=== PATIENT | male | born 1945 | race Caucasian/White ===

== ENCOUNTER 2016-10-13 17:36 | Inpatient (IN) | payer OTHER ==
[~2016-10-13] VITALS: Ht 185.4 cm; Wt 59.4 kg
[2016-10-13] MEDS ORDERED: IV NS 0.9% 1,000 ML BAG IV ONE ×2 (18:30→20:30)
[2016-10-13 18:33] LABS: BASOPHILS # (AUTO) 0.5 /CMM (0.0-0.2); BASOPHILS % (AUTO) 4.5 % (0.0-2.0); DIFF TOTAL % 100 %; EOSINOPHILS # (AUTO) 0.1 /CMM (0.0-0.7); EOSINOPHILS % (AUTO) 0.6 % (0.0-6.0); HEMATOCRIT 53 % (39-51); HEMOGLOBIN 17.3 g/dL (13.5-17.5); LYMPHOCYTES # (AUTO) 1.3 /CMM (0.8-4.8); LYMPHOCYTES % (AUTO) 12.8 % (20.0-44.0); MEAN CORPUSCULAR HEMOGLOBIN 30 PG (26.0-33.0); MEAN CORPUSCULAR HGB CONC 33 g/dl (31.0-36.0); MEAN CORPUSCULAR VOLUME 91 fL (80-96); MONOCYTES # (AUTO) 0.6 /CMM (0.1-1.30); MONOCYTES % (AUTO) 5.6 % (2.0-12.0); NEUTROPHILS % (AUTO) 76.5 % (43.0-81.0); PLATELET COUNT (AUTO) 265 /CMM (150-450); RED BLOOD CELL COUNT(AUTO) 5.82 MIL/uL (4.5-6.0); WHITE BLOOD COUNT (AUTO) 10.5 K/uL (4.3-11.0)
[2016-10-13] MEDS ORDERED: IV NS 0.9% 1,000 ML ONE ×2 (18:35→20:28)
[2016-10-13] MEDS ORDERED: IV SET PRIMARY 1 EA INFUS.SET MC ONE ×2 (18:35→20:28)
[2016-10-13 18:46] LABS: ANION GAP 16 (5-14); CALCIUM, SERUM 8.9 mg/dL (8.5-10.1); CARBON DIOXIDE 27 mmol/L (21-32); CHLORIDE 100 mmol/L (98-107); CREATININE 1.2 mg/dL (0.6-1.3); GLUCOSE 121 mg/dL (74-106); POTASSIUM 4.3 mmol/L (3.5-5.1); SODIUM SERUM 139 mmol/L (136-145); UREA NITROGEN, BLOOD 31 mg/dL (7-18)
[2016-10-13 18:50] LABS: PROTHROMBIN TIME 10.5 SECS (9.5-12.7)
[2016-10-13 18:51] LABS: ALANINE AMINOTRANSFERASE 22 U/L (12-78); ALBUMIN 3.5 g/dL (3.4-5.0); ASPARTATE AMINOTRANSFERASE 60 U/L (15-37); BILIRUBIN,DIRECT 0.1 mg/dL (0.0-0.2); BILIRUBIN,TOTAL 0.4 mg/dL (0.2-1.0); INDIRECT BILIRUBIN 0.3 mg/dL (0.0-1.1); TOTAL PROTEIN, SERUM 7.3 g/dL (6.4-8.2)
[2016-10-13 18:52] LABS: ACETAMINOPHEN 0 ug/ml (10-30); SALICYLATE 2.4 mg/dL (2.8-20.0)
[2016-10-13 18:53] LABS: TROPONIN I 0.037 ng/mL (0.00-0.056)
[2016-10-13 19:22] LABS: THYROID STIMULATING HORMONE 1.029 uIU/mL (0.358-3.74)
[2016-10-13] MEDS ORDERED: ATOR10TA PO (20:21)
[2016-10-13 21:15] VITALS: BP 126/77
[2016-10-13 21:45] VITALS: BP 126/77
[2016-10-13] MEDS ORDERED: MAG HYDROX/AL HYDROX/SIMETH 30 ML UDC PO PRN (22:00)
[2016-10-13] MEDS ORDERED: ACETAMINOPHEN 325 MG TABLET PO PRN (22:00)
[2016-10-13] MEDS ORDERED: HYDROCODONE/APAP 5/325MG 1 EACH TABLET PO PRN (22:00)
[2016-10-13] MEDS ORDERED: ONDANSETRON HCL/PF 4 MG/2 ML VIAL IVP PRN (22:00)
[2016-10-13] MEDS ORDERED: Z GUARD REMEDY 2 OZ OINT TP PRN (22:00)
[2016-10-13] MEDS ORDERED: MAGNESIUM HYDROXIDE 30 ML UDC PO PRN (22:00)
[2016-10-14] VITALS (8 sets, daily range): BP systolic 94–135; BP diastolic 61–88
[2016-10-14] MEDS ORDERED: IV SET PRIMARY PUMP SET 1 EA INFUS.SET MC ONE (00:49)
[2016-10-14] MEDS ORDERED: IV NS 0.9% 1,000 ML ONE (00:49)
[2016-10-14] MEDS: IV NS 0.9% 1,000 ML IV PRN (01:01)
[2016-10-14 07:35] LABS: BASOPHILS % (AUTO) 0.3 % (0.0-2.0); DIFF TOTAL % 100 %; HEMATOCRIT 45 % (39-51); HEMOGLOBIN 14.9 g/dL (13.5-17.5); LYMPHOCYTES # (AUTO) 1.7 /CMM (0.8-4.8); LYMPHOCYTES % (AUTO) 15.1 % (20.0-44.0); MEAN CORPUSCULAR HEMOGLOBIN 31 PG (26.0-33.0); MEAN CORPUSCULAR HGB CONC 33 g/dl (31.0-36.0); MEAN CORPUSCULAR VOLUME 92 fL (80-96); MONOCYTES # (AUTO) 0.7 /CMM (0.1-1.30); NEUTROPHILS # (AUTO) 8.7 /CMM (1.8-8.9); NEUTROPHILS % (AUTO) 78.6 % (43.0-81.0); PLATELET COUNT (AUTO) 235 /CMM (150-450); RED BLOOD CELL COUNT(AUTO) 4.87 MIL/uL (4.5-6.0); WHITE BLOOD COUNT (AUTO) 11.1 K/uL (4.3-11.0)
[2016-10-14] MEDS ORDERED: ALBUTEROL FS 2.5 MG/0.5 ML VIAL.NEB NEB SCH (07:35)
[2016-10-14 07:44] LABS: CALCIUM, SERUM 8.2 mg/dL (8.5-10.1); CREATININE 0.8 mg/dL (0.6-1.3); PHOSPHORUS 2.6 mg/dL (2.5-4.9); POTASSIUM 3.9 mmol/L (3.5-5.1)
[2016-10-14 08:52] LABS: URIC ACID 4.7 mg/dL (2.6-7.2)
[2016-10-14] MEDS: PANTOPRAZOLE 40 MG TABLET.DR PO SCH (09:43)
[2016-10-14] MEDS: ENOXAPARIN SODIUM 40 MG/0.4 ML DISP.SYRIN SQ SCH (09:43)
[2016-10-14] MEDS: ALBUTEROL FS 2.5 MG/3 ML VIAL.NEB NEB SCH ×4 (11:31→20:21)
[2016-10-15] MEDS ORDERED: IV NS 0.9% 1,000 ML ONE (06:16)
[2016-10-15] MEDS: IV NS 0.9% 1,000 ML IV PRN (06:51)
[2016-10-15] MEDS: PANTOPRAZOLE 40 MG TABLET.DR PO SCH (07:30)
[2016-10-15 08:00] VITALS: BP 111/64
[2016-10-15] MEDS: ALBUTEROL FS 2.5 MG/3 ML VIAL.NEB NEB SCH ×3 (08:03→15:37)
[2016-10-15] MEDS: ENOXAPARIN SODIUM 40 MG/0.4 ML DISP.SYRIN SQ SCH (09:29)
[2016-10-15] MEDS ORDERED: PANT40TA2 PO (14:18)
[2016-10-15] MEDS ORDERED: ACET325T53 PO (14:18)
[2016-10-15 15:53] VITALS: BP 123/77
== END 2016-10-15 16:30 | DRG 641 ==
LOC: ER 17:38 → TELE 20:18 → MED 10-14 11:19
DX: E86.0 Dehydration (principal); G91.2 (Idiopathic) normal pressure hydrocephalus; H54.8 Legal blindness, as defined in USA; Z86.73 Personal history of transient ischemic attack (TIA), and cerebral infarction without residual deficits; Z86.61 Personal history of infections of the central nervous system; J44.9 Chronic obstructive pulmonary disease, unspecified; F17.200 Nicotine dependence, unspecified, uncomplicated; F17.210 Nicotine dependence, cigarettes, uncomplicated; R73.9 Hyperglycemia, unspecified; E78.5 Hyperlipidemia, unspecified
CPT/HCPCS: 36415; 70450-TC; 71010-TC; 80048-TC; 80061-TC; 80076-TC; 80305; 81000-TC; 82140-TC; 83735-TC; 84100-TC; 84443-TC; 84484-TC; 84550-TC; 85025-TC; 85730-TC; 87070-TC; 87081-TC; 87086-TC; 94799-TC; 97001-TC; 97530-TC; A4606; G0480; G6039-TC; J1650; J7030; Z7610

== ENCOUNTER 2018-03-15 20:35 | Emergency (ER) | payer OTHER ==
[~2018-03-15] VITALS: Ht 157.5 cm; Wt 59.0 kg
[~2018-03-15 20:35] MED LIST: ACET325T53 PO; ATOR10TA PO; PANT40TA2 PO
--- NOTE | 2018-03-15 20:55 | NUR ---
bib ra from home C/C GENERALIZED WEAKNESS WHILE WALKING TO THE KITCHEN. PER PT, I SLID DOWN TO THE FLOOR. PT STATES "I HAVE HAD PROBLEMS WITH MY WALKING AND STABILITY SINCE 1950'S, BUT ITS WORSE TODAY". PT IS AAOX3. PT DENIES N/V, DIZZINESS, BLURRED VISION, PAIN. PT ABLE TO MOVE ALL EXTREMITIES EVENLY WITH GOOD SENSATIONS. NO S/S OF ACUTE DISTRESS NOTED. RESP EVEN AND UNLABORED. PT PLACED ON RAINBOW TROUT [employer]NAGER AND POX. PT SAFETY AND COMFORT MEASURES IN PLACE. AWAITING MD FOR CARLOS
--- NOTE | 2018-03-15 21:19 | NUR ---
URINAL AND CUP OF WATER PROVIDED TO PT. PT UNABLE TO GIVE URINE SAMPLE AT THIS TIME, MADE AWARE.
--- NOTE | 2018-03-15 21:20 | NUR ---
PHLEBOTOMY BEDSIDE FOR BLOOD DRAW.
[2018-03-15 21:28] LABS: BASOPHILS # (AUTO) 0.3 /CMM (0.0-0.2); BASOPHILS % (AUTO) 2.5 % (0.0-2.0); EOSINOPHILS % (AUTO) 0.2 % (0.0-6.0); HEMATOCRIT 45 % (39-51); HEMOGLOBIN 14.8 g/dL (13.5-17.5); LYMPHOCYTES # (AUTO) 1.3 /CMM (0.8-4.8); LYMPHOCYTES % (AUTO) 10.7 % (20.0-44.0); MEAN CORPUSCULAR HEMOGLOBIN 30 PG (26.0-33.0); MEAN CORPUSCULAR HGB CONC 33 g/dl (31.0-36.0); MEAN CORPUSCULAR VOLUME 91 fL (80-96); MONOCYTES # (AUTO) 0.9 /CMM (0.1-1.30); MONOCYTES % (AUTO) 7.4 % (2.0-12.0); NEUTROPHILS # (AUTO) 9.4 /CMM (1.8-8.9); NEUTROPHILS % (AUTO) 79.2 % (43.0-81.0); PLATELET COUNT (AUTO) 316 /CMM (150-450); RDW COEFFICIENT OF VARIATION 13.9 (11.5-15.0); RED BLOOD CELL COUNT(AUTO) 4.92 MIL/uL (4.5-6.0); WHITE BLOOD COUNT (AUTO) 11.9 K/uL (4.3-11.0)
[2018-03-15 21:51] LABS: CARBON DIOXIDE 29 mmol/L (21-32); CHLORIDE 106 mmol/L (98-107); CREATININE 1.1 mg/dL (0.6-1.3); GLUCOSE 111 mg/dL (74-106); POTASSIUM 4.8 mmol/L (3.5-5.1); SODIUM SERUM 143 mmol/L (136-145); UREA NITROGEN, BLOOD 23 mg/dL (7-18)
[2018-03-15 21:57] LABS: ALANINE AMINOTRANSFERASE 16 U/L (12-78); ALKALINE PHOSPHATASE 80 U/L (46-116); ASPARTATE AMINOTRANSFERASE 22 U/L (15-37); BILIRUBIN,DIRECT 0.1 mg/dL (0.0-0.2); BILIRUBIN,TOTAL 0.4 mg/dL (0.2-1.0); LIPASE 147 U/L (73-393); TOTAL PROTEIN, SERUM 6.9 g/dL (6.4-8.2)
--- NOTE | 2018-03-16 00:45 | NUR ---
PT STATES "I AM UNABLE TO GIVE URINE SAMPLE AT THIS TIME". MADE AWARE. WILL CONTINUE TO MONITOR PT.
--- NOTE | 2018-03-16 01:18 | NUR ---
REPORT GIVEN TO ZAMZAM MARCIAL FOR J CARLOS.
--- NOTE | 2018-03-16 02:03 | NUR ---
REPORT GIVEN TO ROSENDA CREW FOR J CARLOS. PT BEING TRANSFERRED ONTO EMS GURNEY
[2018-03-16 02:09] VITALS: BP 109/72
--- NOTE | 2018-03-16 02:25 | NUR ---
Patient Tranfers to outside Facility Physician:CLAU Location:[facility]
== END 2018-03-16 02:27 | disposition short-term general hospital (02) ==
LOC: ER 20:37
DX: R53.1 Weakness (principal); A86 Unspecified viral encephalitis; H54.8 Legal blindness, as defined in USA; F17.200 Nicotine dependence, unspecified, uncomplicated; Z60.2 Problems related to living alone
CPT/HCPCS: 36415; 70450; 71045; 72170; 80048; 80076; 83690; 85025; 99285; A4606; Z7610